=== PATIENT | female | born 1950 | race Caucasian/White ===

== ENCOUNTER → 2016-07-20 | Outpatient (CLI) | payer OTHER, MEDICAID ==
[~2016-07-20] MED LIST: ACETAMINOPHEN W1 TA6 PO; AMBIEN 10MG10 MG PO; AMBIEN 5MG TABLE5 MG PO; ASPIRIN 32325 MG/TAB PO; COLACE 100100 MG/CAP PO; CYMBALTA 30MG30 MG PO; CYMBALTA 60MG60 MG PO; FLEXERIL5 MG PO; LAMICTAL150 MG PO; LEVOTHYROXINE0.05 MG PO; LORTAB 10/500 51 TAB PO; LORTAB 5/500 501 TAB PO; LYRICA200 MG PO; MEDROL 4MG DOSPA4 MG PO; METHADONE H10 MG/TAB; METHADONE H10 MG/TAB PO; NEURONTIN300 MG/CAP PO; NITROSTAT0.4 MG/TAB SL; NORCO 325 MG-101 TAB; NORCO 325 MG-101 TAB PO; NORCO 325 MG-51 TAB PO; RANITIDINE150 MG PO; SYNTHROID0.125 MG/T PO; TRILAFON 2MG TAB2 MG PO; TYLENOL 500MG500 MG PO; ULTRAM 50MG TAB50 MG PO; ULTRAM50 MG PO; [UNRECOGNIZED DRUG - OTHER]
== END ==
LOC: BHSO 13:04
DX: F31.81 Bipolar II disorder (principal)

== ENCOUNTER → 2016-08-30 | Outpatient (REF) ==
[2016-08-30 22:02] LABS: HEPATITIS B SURFACE AB-QL Negative (()); HIV 1 and 2 ANTIBODY SCRN-SO Negative (())
== END ==
LOC: ZMSC 13:58
PROVIDERS: Specialist
DX: Z01.89 Encounter for other specified special examinations (principal)

== ENCOUNTER → 2016-10-18 | Outpatient (CLI) | payer OTHER, MEDICAID | LOC: BHSO 12:43 | DX: F33.1 Major depressive disorder, recurrent, moderate (principal) ==

== ENCOUNTER → 2017-01-13 | Outpatient (CLI) | payer OTHER | LOC: MC.RAD 10:24 | DX: N63 Unspecified lump in breast (principal) ==

== ENCOUNTER 2017-01-29 10:27 | Emergency (ER) | payer OTHER ==
[~2017-01-29] VITALS: Ht 162.6 cm; Wt 72.7 kg
[~2017-01-29 10:27] MED LIST changes: -MEDROL 4MG DOSPA4 MG PO
[2017-01-29 10:30] VITALS: BP 116/66; PULSE 76; TEMP 97.9
[2017-01-29] MEDS ORDERED: MEDROL 4MG DOSPA4 MG PO (11:53)
== END 2017-01-29 12:07 | disposition home or self-care (01) ==
LOC: COL.ER 10:27
DX: G89.29 Other chronic pain (principal); M54.5 Low back pain; Z87.39 Personal history of other diseases of the musculoskeletal system and connective tissue; Z90.710 Acquired absence of both cervix and uterus; Z79.82 Long term (current) use of aspirin
CPT/HCPCS: J2360; J3360

== ENCOUNTER → 2017-02-16 | Outpatient (CLI) | payer OTHER ==
[~2017-02-16] MED LIST changes: +MEDROL 4MG DOSPA4 MG PO
== END ==
LOC: BHSO 12:35
DX: F41.1 Generalized anxiety disorder (principal)

== ENCOUNTER → 2017-06-19 | Outpatient (CLI) | payer OTHER | LOC: BHSO 11:11 | DX: F31.73 Bipolar disorder, in partial remission, most recent episode manic (principal) | CPT/HCPCS: G0463 ==

== ENCOUNTER → 2017-09-12 | Outpatient (CLI) | payer OTHER | LOC: BHSO 10:28 | DX: F33.41 Major depressive disorder, recurrent, in partial remission (principal) | CPT/HCPCS: G0463 ==

== ENCOUNTER → 2017-12-05 | Outpatient (CLI) | payer OTHER | LOC: BHSO 10:28 | DX: F33.42 Major depressive disorder, recurrent, in full remission (principal) ==

== ENCOUNTER → 2018-03-13 | Outpatient (CLI) | payer OTHER | LOC: BHSO 11:18 | DX: F33.42 Major depressive disorder, recurrent, in full remission (principal) | CPT/HCPCS: G0463 ==

== ENCOUNTER 2018-08-29 16:22 | Emergency (ER) | payer OTHER ==
[~2018-08-29] VITALS: Ht 162.6 cm; Wt 72.7 kg
[2018-08-29 16:28] VITALS: BP 112/63; TEMP 98.7
[2018-08-29 18:14] VITALS: PULSE 71
== END 2018-08-29 18:20 | disposition home or self-care (01) ==
LOC: COL.ER 16:22
DX: M54.5 Low back pain (principal); F32.9 Major depressive disorder, single episode, unspecified; M79.7 Fibromyalgia; Z79.82 Long term (current) use of aspirin
CPT/HCPCS: J1885

== ENCOUNTER → 2018-09-12 | Outpatient (CLI) | payer OTHER | LOC: BHSO 10:55 | DX: F33.42 Major depressive disorder, recurrent, in full remission (principal) | CPT/HCPCS: G0463 ==

== ENCOUNTER → 2018-12-17 | Outpatient (CLI) | payer OTHER | LOC: BHSO 09:37 | DX: F33.42 Major depressive disorder, recurrent, in full remission (principal) | CPT/HCPCS: G0463 ==

== ENCOUNTER → 2019-06-27 | Outpatient (CLI) | payer MEDICARE | LOC: BHSO 09:23 | DX: F33.42 Major depressive disorder, recurrent, in full remission (principal) | CPT/HCPCS: G0463 ==

== ENCOUNTER → 2019-12-18 | Outpatient (CLI) | payer MEDICARE | LOC: BHSO 09:37 | DX: F41.1 Generalized anxiety disorder (principal) | CPT/HCPCS: G0463 ==

== ENCOUNTER → 2020-02-20 | Outpatient (CLI) | payer MEDICARE | LOC: COL.CARD 10:00 | DX: R42 Dizziness and giddiness (principal) ==

== ENCOUNTER → 2021-03-10 | Outpatient (CLI) | payer MEDICARE | LOC: COL.RAD 13:54 | DX: M47.816 Spondylosis without myelopathy or radiculopathy, lumbar region (principal); M48.07 Spinal stenosis, lumbosacral region; M51.26 Other intervertebral disc displacement, lumbar region ==

== ENCOUNTER → 2021-04-07 | Outpatient (CLI) | payer MEDICARE | LOC: MHCPAIN 10:10 | DX: M47.817 Spondylosis without myelopathy or radiculopathy, lumbosacral region (principal); M53.3 Sacrococcygeal disorders, not elsewhere classified; M54.16 Radiculopathy, lumbar region | CPT/HCPCS: G0463 ==

== ENCOUNTER → 2021-04-15 | Outpatient (CLI) | payer MEDICARE | LOC: MHCPAIN 10:10 | DX: M47.817 Spondylosis without myelopathy or radiculopathy, lumbosacral region (principal); M53.3 Sacrococcygeal disorders, not elsewhere classified; M54.16 Radiculopathy, lumbar region | CPT/HCPCS: J1100; Q9967 ==

== ENCOUNTER → 2021-04-28 | Outpatient (CLI) | payer MEDICARE | LOC: MHCPAIN 09:53 | DX: M47.817 Spondylosis without myelopathy or radiculopathy, lumbosacral region (principal); M54.16 Radiculopathy, lumbar region; M53.3 Sacrococcygeal disorders, not elsewhere classified | CPT/HCPCS: G0463 ==

== ENCOUNTER → 2021-05-31 | Outpatient (CLI) | payer MEDICARE | LOC: COL.RAD 07:18 | DX: N32.9 Bladder disorder, unspecified (principal); N32.3 Diverticulum of bladder; K59.00 Constipation, unspecified | CPT/HCPCS: Q9967 ==

== ENCOUNTER → 2021-11-17 | Outpatient (CLI) | payer MEDICARE | LOC: MHCPAIN 10:32 | DX: M47.817 Spondylosis without myelopathy or radiculopathy, lumbosacral region (principal); M53.3 Sacrococcygeal disorders, not elsewhere classified; M54.16 Radiculopathy, lumbar region | CPT/HCPCS: G0463 ==

== ENCOUNTER → 2021-12-02 | Outpatient (CLI) | payer MEDICARE | LOC: MHCPAIN 09:49 | DX: M47.817 Spondylosis without myelopathy or radiculopathy, lumbosacral region (principal); M53.3 Sacrococcygeal disorders, not elsewhere classified; M54.16 Radiculopathy, lumbar region | CPT/HCPCS: J1100; Q9967 ==

== ENCOUNTER → 2022-04-19 | Outpatient (CLI) | payer MEDICARE | LOC: MHCPAIN 10:22 | DX: M47.817 Spondylosis without myelopathy or radiculopathy, lumbosacral region (principal); M54.50 Low back pain, unspecified; M54.16 Radiculopathy, lumbar region; M53.3 Sacrococcygeal disorders, not elsewhere classified; M25.562 Pain in left knee | CPT/HCPCS: G0463 ==

== ENCOUNTER → 2023-02-23 | Outpatient (CLI) | payer MEDICARE | LOC: MHCPAIN 09:30 | DX: M47.817 Spondylosis without myelopathy or radiculopathy, lumbosacral region (principal); M54.50 Low back pain, unspecified | CPT/HCPCS: J0665; J1100; J2250; J3010 ==

== ENCOUNTER → 2023-06-21 | Outpatient (CLI) | payer MEDICARE | LOC: MHCPAIN 09:33 | DX: M47.817 Spondylosis without myelopathy or radiculopathy, lumbosacral region (principal); M48.061 Spinal stenosis, lumbar region without neurogenic claudication; M79.18 Myalgia, other site | CPT/HCPCS: G0463 ==

== ENCOUNTER → 2023-07-05 | Outpatient (CLI) | payer MEDICARE | LOC: MHCPAIN 10:18 | DX: M47.817 Spondylosis without myelopathy or radiculopathy, lumbosacral region (principal); M48.061 Spinal stenosis, lumbar region without neurogenic claudication | CPT/HCPCS: G0463 ==

== ENCOUNTER → 2023-08-30 | Outpatient (CLI) | payer MEDICARE | LOC: MHCPAIN 10:13 | DX: M25.561 Pain in right knee (principal); M54.50 Low back pain, unspecified; Z96.651 Presence of right artificial knee joint | CPT/HCPCS: G0463 ==

== ENCOUNTER → 2023-10-19 | Outpatient (CLI) | payer MEDICARE | LOC: MHCPAIN 10:30 | DX: M25.561 Pain in right knee (principal); M79.2 Neuralgia and neuritis, unspecified; Z96.651 Presence of right artificial knee joint ==

== ENCOUNTER → 2023-12-21 | Outpatient (CLI) | payer MEDICARE ==
[~2023-12-21] MED LIST changes: +Lidocaine PF 2% (20 MG/ML) 5 ML VIAL ONE; +Midazolam 2 MG/2 ML VIAL ONE; +fentaNYL 50 MCG/ML 2 ML VIAL ONE
== END ==
LOC: MHCPAIN 11:15
DX: M25.561 Pain in right knee (principal); M79.2 Neuralgia and neuritis, unspecified
CPT/HCPCS: J0665; J2250; J3010

== ENCOUNTER → 2024-02-01 | Outpatient (CLI) | payer MEDICARE | LOC: MHCPAIN 09:39 | DX: M47.817 Spondylosis without myelopathy or radiculopathy, lumbosacral region (principal); M54.50 Low back pain, unspecified | CPT/HCPCS: J0665; J2250; J3010 ==

== ENCOUNTER → 2024-04-02 | Outpatient (CLI) | payer MEDICARE ==
[~2024-04-02] MED LIST changes: -Lidocaine PF 2% (20 MG/ML) 5 ML VIAL ONE; -Midazolam 2 MG/2 ML VIAL ONE; -fentaNYL 50 MCG/ML 2 ML VIAL ONE
== END ==
LOC: MHCPAIN 10:44
DX: M47.817 Spondylosis without myelopathy or radiculopathy, lumbosacral region (principal); M48.061 Spinal stenosis, lumbar region without neurogenic claudication; M79.7 Fibromyalgia
CPT/HCPCS: G0463